=== PATIENT | male | born 1995 | race Caucasian/White ===

== ENCOUNTER 2021-05-16 16:39 | Emergency (ER) | payer BC, SELFPAY ==
[~2021-05-16] VITALS: Ht 172.7 cm; Wt 75.0 kg
[2021-05-16 16:40] VITALS: BP 114/70
[2021-05-16] MEDS ORDERED: AUGMENTIN 875 MG TAB PO ONE (20:40)
[2021-05-16] MEDS ORDERED: ACETAMINOPHEN 325 MG TAB PO ONE (21:00)
[2021-05-16] MEDS ORDERED: LIDOCAINE 2% MDV 20ML VIAL SC ONE (21:00)
[2021-05-16] MEDS ORDERED: AUGM875T28 PO (21:38)
== END 2021-05-16 22:56 | disposition home or self-care (01) ==
LOC: M ED 16:39
DX: S41.131A Puncture wound without foreign body of right upper arm, initial encounter (principal); W54.0XXA Bitten by dog, initial encounter; Y92.009 Unspecified place in unspecified non-institutional (private) residence as the place of occurrence of the external cause; Y93.9 Activity, unspecified; Y99.9 Unspecified external cause status

== ENCOUNTER 2022-07-09 11:48 | Emergency (ER) | payer SELFPAY ==
[~2022-07-09] VITALS: Ht 172.7 cm; Wt 84.6 kg
[~2022-07-09 11:48] MED LIST: AUGM875T28 PO
[2022-07-09 12:14] LABS: BASO % 0.4 % (0.0-1.0); EOS # 0.1 10^3/uL (0.0-0.5); EOS % 1.3 % (0.0-3.0); HEMOGLOBIN 16.1 g/dl (13.5-17.5); LYMPH # 2.1 10^3/uL (1.5-5.0); LYMPH % 27.8 % (24.0-44.0); MEAN CORPUSCULAR HEMOGLOBIN 31.3 pg (27.0-33.0); MEAN CORPUSCULAR HGB CONC 35.8 g/dl (32.0-36.5); MEAN CORPUSCULAR VOLUME 87.5 fl (80.0-96.0); MONO # 0.6 10^3/uL (0.0-0.8); MONO % 7.6 % (2.0-8.0); NEUTROPHILS # 4.7 10^3/uL (1.5-8.5); NEUTROPHILS % 62.2 % (36.0-66.0); PLATELET COUNT, AUTOMATED 249 10^3/uL (150-450); RED BLOOD COUNT 5.14 10^6/uL (4.30-6.10); WHITE BLOOD COUNT 7.5 10^3/uL (4.0-10.0)
[2022-07-09 12:24] LABS: INR 0.97; PROTHROMBIN TIME 13.1 SECONDS (12.5-14.5)
[2022-07-09 12:25] LABS: PARTIAL THROMBOPLASTIN TIME 30.5 SECONDS (24.8-34.2)
[2022-07-09 12:47] LABS: LIPASE 25 U/L (12-53)
[2022-07-09 12:49] LABS: CPK CREATINE PHOSPHOKINASE 109 U/L (46-171)
[2022-07-09 12:51] LABS: ALBUMIN 4.1 G/DL (3.2-5.2); ALKALINE PHOSPHATASE 66 U/L (46-116); ALT/SGPT 36 U/L (7.0-40); AST/SGOT 25 U/L (<34); BILIRUBIN,DIRECT 0.2 MG/DL (<0.4); BILIRUBIN,TOTAL 0.5 MG/DL (0.3-1.2); BLOOD UREA NITROGEN 17 MG/DL (9-23); CALCIUM LEVEL 9.1 MG/DL (8.5-10.1); CARBON DIOXIDE LEVEL 28 MMOL/L (20-31); CHLORIDE LEVEL 104 MMOL/L (98-107); CK-MB VALUE MASS < 1.0 NG/ML (<3.6); CREATININE FOR GFR 0.98 MG/DL (0.70-1.30); GLOMERULAR FILTRATION RATE > 60.0 (>60); GLUCOSE, FASTING 118 MG/DL (60-100); MB/CK RELATIVE INDEX 0.91 (< OR =4); SODIUM LEVEL 137 MMOL/L (136-145); THYROID STIMULATING HORMONE 1.983 uIU/ML (0.55-4.78)
[2022-07-09] MEDS ORDERED: KETOROLAC 30 MG/ML 1ML VIAL IV ONE (14:00)
[2022-07-09 14:55] LABS: CK-MB VALUE MASS < 1.0 NG/ML (<3.6)
[2022-07-09 14:57] LABS: CPK CREATINE PHOSPHOKINASE 112 U/L (46-171); MB/CK RELATIVE INDEX 0.89 (< OR =4)
[2022-07-09 15:27] LABS: TOTAL PROTEIN 7.6 G/DL (5.7-8.2)
[2022-07-09 15:36] VITALS: BP 117/74
== END 2022-07-09 15:40 | disposition home or self-care (01) ==
LOC: M ED 11:48 → EDBD 11:48 → M ED 15:40
DX: R55 Syncope and collapse (principal); R07.89 Other chest pain; Z82.49 Family history of ischemic heart disease and other diseases of the circulatory system
CPT/HCPCS: 71046; 80048; 80076; 82550; 82553; 83690; 84439; 84443; 84484; 85025; 85610; 85730; 93005; 96374; 99284; J1885

== ENCOUNTER 2023-08-29 15:57 | Emergency (ER) | payer SELFPAY ==
[~2023-08-29] VITALS: Ht 172.7 cm; Wt 81.4 kg
[2023-08-29 17:31] LABS: RSV AMPLIFICATION NEGATIVE (NEGATIVE)
[2023-08-29 19:56] VITALS: BP 123/68; TEMP 98.5; O2SAT 97
== END 2023-08-29 19:58 | disposition home or self-care (01) ==
LOC: M ED 15:57
DX: R05.3 Chronic cough (principal); R53.83 Other fatigue; R10.30 Lower abdominal pain, unspecified; Z11.52 Encounter for screening for COVID-19